=== PATIENT | female | born 2000 | race Caucasian/White ===

== ENCOUNTER 2020-10-12 15:38 | Emergency (ER) | payer OTHER, SELFPAY ==
--- NOTE | ~2020-10-12 | XR_ITS ---
XR foot RT min 3V DATE: 10/12/2020 15:51 INDICATION: Stubbed right fourth toe. Metatarsal pain as well. TECHNIQUE: 4 views of the right foot COMPARISON: None FINDINGS: No fracture or dislocation, periosteal reaction or bone destruction. IMPRESSION: Negative Reviewed, dictated and finalized at location A. IMPRESSION: Negative
--- NOTE | 2020-10-12 15:40 | ED.LOWEXIN ---
HPI - Extremity Injury (Lower) General Chief Complaint: Extremity Injury, Lower Stated Complaint: injured toe Time Seen by Provider: 10/12/20 15:45 Source: patient, family and RN notes reviewed History of Present Illness HPI Narrative: Patient is a 19-year-old female who presents the urgent care with complaints of right fourth toe pain and pain to the right foot. Patient states that 4 days ago she stubbed her toe and believes it may be broke. Patient states she is having a lot of pain and swelling to the underside of the right foot. No other acute complaints. No acute distress noted. Patient aware of the plan of care. Some parts of this dictation were generated by voice recognition software and may contain typographical and/or grammatical inaccuracies. Related Data Home Medications Medication Instructions Recorded Confirmed norgestimate-ethinyl estradiol tablet 10/12/20 [Sprintec (28)] Allergies Allergy/AdvReac Type Severity Reaction Status Date / Time No Known Allergies Allergy Verified 11/21/17 18:20 Review of Systems Review of Systems: Narrative: CONSTITUTIONAL: Denies fever, chills, or sweats. EYES: Denies visual changes, redness, or discharge. ENT: Denies rhinorrhea, congestion, sore throat, or otalgia. CARDIOVASCULAR: Denies chest pain, palpitations, or edema. RESPIRATORY: Denies cough or dyspnea. GASTROINTESTINAL: Denies abdominal pain, nausea, vomiting, or diarrhea. GENITOURINARY: Denies dysuria or hematuria. SKIN: Denies rash or itching. MUSCULOSKELETAL: Reports of swelling and bruising to the right fourth toe and pain to the right foot NEUROLOGIC: Denies headache, numbness, or weakness. All other systems reviewed are negative, except as documented in HPI. PMFSH Comments At the time of my signature, I reviewed and agree with the nursing past medical, surgical, social, and family history. There is no relevant family history pertinent to the patient complaint. Exam Narrative: Exam Narrative: GENERAL: This is a well-nourished, well-developed patient, in no apparent distress. HEAD: normocephalic, atraumatic. EYES: PERRL. Sclera clear/white. Vision is grossly intact. EARS: External ears normal NOSE: External nose normal with no obvious nasal discharge, nares without redness, no rhinorrhea. THROAT: Mucous membranes moist NECK: Neck supple CARDIOVASCULAR: Regular rate and rhythm without murmurs, gallops, or rubs. RESPIRATORY: Clear to auscultation. Breath sounds equal bilaterally. No wheezes, rales, or rhonchi. SKIN: warm, intact with no suspicious lesions or rash, good texture and turgor. NEURO: awake, alert, and oriented to person, place and time. There were no obvious focal neurologic abnormalities. EXTREMITIES: Moderate ecchymosis and mild edema noted to the fourth toe of the right foot with moderate tenderness. Positive strong right pedal pulse with capillary refill less than 2 seconds. Pain exacerbated with weightbearing Course Vital Signs Vital signs: Vital Signs Temperature 98.8 F 10/12/20 15:51 Pulse Rate 102 H 10/12/20 15:51 Respiratory Rate 16 10/12/20 15:51 Blood Pressure 147/94 H 10/12/20 15:51 Pulse Oximetry 100 10/12/20 15:51 Temperature 98.8 F 10/12/20 15:51 Pulse Rate 102 H 10/12/20 15:51 Respiratory Rate 16 10/12/20 15:51 Blood Pressure 147/94 H 10/12/20 15:51 Pulse Oximetry 100 10/12/20 15:51 Reviewed-patient is informed that they may have pre-hypertension or hypertension based on a blood pressure reading in the department. I recommend the patient call the primary care provider listed on their discharge instructions or a physician of their choice this week to arrange follow-up for further evaluation of possible pre-hypertension or hypertension. MDM - Extremity Injury (Lower) MDM Narrative Medical decision making narrative: Reviewed x-ray results with the patient. She is aware that x-ray was negative for fracture or bone abnormality. There is no
[2020-10-12 15:51] VITALS: BP 147/94; PULSE 102; RESP 16; TEMP 37.1; O2SAT 100
== END 2020-10-12 16:11 | disposition home or self-care (01) ==
PROVIDERS: Emergency Provider Nurse Practitioner Family; PCP Pediatrics
DX: S90.121A Contusion of right lesser toe(s) without damage to nail, initial encounter (principal); X58.XXXA Exposure to other specified factors, initial encounter
CPT/HCPCS: 73630; 99213; G0463

== ENCOUNTER 2023-02-27 14:44 | Outpatient (CLI) | payer OTHER, SELFPAY ==
[2023-02-27 15:08] LABS: Basophils Percent Auto 0.1 % (0.2-1.2); Eosinophils Percent Auto 0.1 % (0-4.4); Hematocrit 35.8 % (37.0-47.0); Hemoglobin 11.7 g/dL (12.0-15.0); Immature Granulocyte Absolute 0.05 K/mm3 (0.00-0.031); Immature Granulocyte Percent A 0.4 % (0-0.5); Lymphocytes Absolute Auto 1.88 K/mm3 (0.9-3.2); Lymphocytes Percent Auto 14.1 % (18.3-44.2); Mean Corpuscular HGB Conc 32.7 g/dl (32-36); Mean Corpuscular Hemoglobin 28.5 pg (26-34); Mean Corpuscular Volume 87.1 fl (80-100); Mean Platelet Volume 9.6 fl (7.4-10.4); Monocytes Absolute Auto 0.7 K/mm3 (0.1-0.6); Neutrophils Absolute Auto 10.8 K/mm3 (1.3-6.7); Neutrophils Percent Auto 80.3 % (45.5-73.1); Platelet Count Result 336 k/mm3 (150-375); Red Blood Count 4.11 M/mm3 (4.2-5.4); Red Cell Distribution Width 13.9 % (11.5-14.5); White Blood Count 13.4 K/mm3 (4.5-10.0)
[2023-02-27 15:16] VITALS: BP 136/92; PULSE 82
[2023-02-27 15:18] LABS: Appearance Urine Turbid (Clear); Bacteria Urine None Seen /hpf; Bilirubin Urine Negative (Negative); Blood Urine Negative (Negative); Color Urine Yellow (Yellow); Glucose Urine UA Negative (Negative); Ketones Urine Negative (Negative); Leukocyte Esterase Ur Negative LEU/UL (NEGATIVE); Nitrate Urine Negative (Negative); Non Pathogenic Casts 0-2; Protein Urine Negative (Negative); RBC Urine 0-2 /hpf (0-2); Specific Grav Ur 1.015 (1.001-1.035); Squamous Epithelial Cell Urine None seen /hpf (Few); Urobilinogen Urine 0.2 mg/dL (<2.0); WBC Urine 0-5 /hpf (0-3)
[2023-02-27 15:30] LABS: Add Urine Microscopic? YES
[2023-02-27 15:31] VITALS: BP 137/81; PULSE 79
[2023-02-27 15:33] LABS: Creatinine Urine 95.8 mg/dL; Total Protein Urine Random 12 mg/dL; Ur Ttl Prot Creatinine Ratio 0.13 mg/mg (0-0.20)
[2023-02-27 15:46] VITALS: BP 126/81; PULSE 76
[2023-02-27 16:01] VITALS: BP 137/80; PULSE 71
[2023-02-27 16:09] LABS: Alanine Aminotransferase 20 U/L (6-35); Albumin Level 3.6 g/dL (3.5-5.1); Alkaline Phosphatase 129 U/L (38-126); Anion Gap 10 mmol/L (8-16); Aspartate Amino Transferase 32 U/L (14-36); Bilirubin,Total 0.4 mg/dL (0.2-1.3); Blood Urea Nitrogen 9 mg/dL (7-17); Calcium 9.1 mg/dL (8.4-10.2); Carbon Dioxide 22 mmol/L (22-30); Chloride 103 mmol/L (98-107); Estimated Glomerular Filt Rate > 60; Glucose 99 mg/dL (65-110); Potassium 4.1 mmol/L (3.4-5.0); Sodium 135 mmol/L (137-145); Uric Acid 4.6 mg/dL (2.5-7.5)
[2023-02-27 16:16] VITALS: BP 141/82; PULSE 80
[2023-02-27 16:21] VITALS: BP 137/80; PULSE 80
== END 2023-02-27 16:20 | disposition home or self-care (01) ==
LOC: ANHOBOP 14:48 → ANHOBPP 14:49
PROVIDERS: Visit Provider Obstetrics & Gynecology
DX: O13.9 Gestational [pregnancy-induced] hypertension without significant proteinuria, unspecified trimester (principal); Z3A.00 Weeks of gestation of pregnancy not specified
CPT/HCPCS: 36415; 59025; 80053; 81001; 82570; 84156; 84550; 85025; 87086; 99199

== ENCOUNTER 2023-03-01 11:32 | Outpatient (CLI) | payer OTHER, SELFPAY ==
[2023-03-01 12:19] VITALS: BP 128/80; PULSE 93
[2023-03-01 12:24] LABS: Basophils Percent Auto 0.1 % (0.2-1.2); Eosinophils Percent Auto 0.2 % (0-4.4); Hematocrit 35.9 % (37.0-47.0); Immature Granulocyte Absolute 0.04 K/mm3 (0.00-0.031); Immature Granulocyte Percent A 0.4 % (0-0.5); Lymphocytes Absolute Auto 1.13 K/mm3 (0.9-3.2); Lymphocytes Percent Auto 11.3 % (18.3-44.2); Mean Corpuscular HGB Conc 33.4 g/dl (32-36); Mean Corpuscular Hemoglobin 28.5 pg (26-34); Mean Corpuscular Volume 85.3 fl (80-100); Mean Platelet Volume 9.7 fl (7.4-10.4); Monocytes Absolute Auto 0.4 K/mm3 (0.1-0.6); Monocytes Percent Auto 4.4 % (2.6-8.5); Neutrophils Absolute Auto 8.4 K/mm3 (1.3-6.7); Neutrophils Percent Auto 83.6 % (45.5-73.1); Platelet Count Result 330 k/mm3 (150-375); Red Blood Count 4.21 M/mm3 (4.2-5.4)
[2023-03-01 12:30] VITALS: BP 118/72; PULSE 91
[2023-03-01 12:34] LABS: Alanine Aminotransferase 24 U/L (6-35); Albumin Level 3.8 g/dL (3.5-5.1); Alkaline Phosphatase 147 U/L (38-126); Anion Gap 10 mmol/L (8-16); Aspartate Amino Transferase 31 U/L (14-36); Bilirubin,Total 0.8 mg/dL (0.2-1.3); Blood Urea Nitrogen 10 mg/dL (7-17); Calcium 8.8 mg/dL (8.4-10.2); Carbon Dioxide 19 mmol/L (22-30); Chloride 102 mmol/L (98-107); Estimated Glomerular Filt Rate > 60; Glucose 105 mg/dL (65-110); Potassium 3.8 mmol/L (3.4-5.0); Sodium 131 mmol/L (137-145); Uric Acid 6.2 mg/dL (2.5-7.5)
[2023-03-01 12:36] LABS: Creatinine Urine 278.1 mg/dL; Total Protein Urine Random 9 mg/dL; Ur Ttl Prot Creatinine Ratio 0.03 mg/mg (0-0.20)
[2023-03-01 12:45] VITALS: BP 119/72; PULSE 84
== END 2023-03-01 13:00 | disposition home or self-care (01) ==
LOC: ANHOBOP 11:37 → ANHOBPP 11:39
PROVIDERS: Visit Provider Advanced Practice Midwife
DX: O13.9 Gestational [pregnancy-induced] hypertension without significant proteinuria, unspecified trimester (principal); Z3A.00 Weeks of gestation of pregnancy not specified
CPT/HCPCS: 36415; 59025; 80053; 82570; 84156; 84550; 85025; 99199

== ENCOUNTER 2023-03-15 04:04 | Inpatient (IN) | payer OTHER, SELFPAY ==
[2023-03-15] VITALS (268 sets, daily range): BP systolic 100–162; BP diastolic 46–95; PULSE 28–192; RESP 16–20; TEMP 36.2–36.9; O2SAT 89–100; BMI 47.3
--- NOTE | 2023-03-15 04:46 | LDADM ---
This patient, Ariana Valle, was admitted to Labor/Delivery/Recovery 107 on 03/15/23 at 04:04. Plans for labor, pain management and were discussed with patient. Patient/family oriented to hospital policies and general routines including ID bracelet, bed and alarms, visiting hours, pain management, procedures, bathroom and other care routines, personal items, smoking policy, room service/diet and guest tray routines, security routines, and visiting hours. Patient/Family are encouraged to report perceived risks to care and to ask questions if they do not understand what they are told or what they should do. See OBIX for further documentation.
[2023-03-15 04:51] LABS: Basophils Percent Auto 0.3 % (0.2-1.2); Eosinophils Absolute Auto 0.1 K/mm3 (0-0.3); Eosinophils Percent Auto 0.3 % (0-4.4); Hematocrit 37.2 % (37.0-47.0); Hemoglobin 12.1 g/dL (12.0-15.0); Immature Granulocyte Percent A 0.7 % (0-0.5); Lymphocytes Absolute Auto 2.97 K/mm3 (0.9-3.2); Mean Corpuscular HGB Conc 32.5 g/dl (32-36); Mean Corpuscular Hemoglobin 28.5 pg (26-34); Mean Corpuscular Volume 87.5 fl (80-100); Mean Platelet Volume 10.2 fl (7.4-10.4); Monocytes Absolute Auto 0.8 K/mm3 (0.1-0.6); Monocytes Percent Auto 5.3 % (2.6-8.5); Neutrophils Absolute Auto 10.9 K/mm3 (1.3-6.7); Neutrophils Percent Auto 73.4 % (45.5-73.1); Platelet Count Result 328 k/mm3 (150-375); Red Blood Count 4.25 M/mm3 (4.2-5.4); Red Cell Distribution Width 14.4 % (11.5-14.5); White Blood Count 14.9 K/mm3 (4.5-10.0)
[2023-03-15] MEDS: LACTATED RINGERS 1,000 ML 125 ML IV CONT ×3 (05:04→13:50)
--- NOTE | 2023-03-15 05:42 | WPDANESEPPF ---
Anes - Initial Pre Proc Eval Procedure: Labor epidural Date/Time: 03/15/23 05:42 Surgeon: Rahda Espinoza MD Pre Op Diagnosis: Labor pain Pre Op Diagnosis: Leaking Fluid Patient Data Age: 22 Gender: F Height: 1.52 m Weight: 110 kg Last Vital Signs Pulse 86 03/15/23 05:01 BP 153/95 H 03/15/23 05:01 O2 Del Method Room Air 03/15/23 04:44 Allergies Allergy/AdvReac Type Severity Reaction Status Date / Time No Known Allergies Allergy Verified 03/15/23 04:52 Home Medications Medication Instructions Recorded Confirmed Type Classic 1 tab-cap PO DAILY 03/05/23 03/15/23 History famotidine 20 mg tablet 20 mg PO DAILY 03/05/23 03/15/23 History Laboratory Tests 03/15/23 04:42 WBC 14.9 H K/mm3 (4.5-10.0) RBC 4.25 M/mm3 (4.2-5.4) Hgb 12.1 g/dL (12.0-15.0) Hct 37.2 % (37.0-47.0) MCV 87.5 fl (80-100) MCH 28.5 pg (26-34) MCHC 32.5 g/dl (32-36) RDW 14.4 % (11.5-14.5) Plt Count 328 k/mm3 (150-375) MPV 10.2 fl (7.4-10.4) Immature Gran % (Auto) 0.7 H % (0-0.5) Neut % (Auto) 73.4 H % (45.5-73.1) Lymph % (Auto) 20.0 % (18.3-44.2) [place] % (Auto) 5.3 % (2.6-8.5) Eos % (Auto) 0.3 % (0-4.4) Baso % (Auto) 0.3 % (0.2-1.2) Lymph # (Auto) 2.97 K/mm3 (0.9-3.2) [place] # (Auto) 0.8 H K/mm3 (0.1-0.6) Eos # (Auto) 0.1 K/mm3 (0-0.3) Baso # (Auto) 0.0 K/mm3 (0.0-0.1) Abs Immat Gran (auto) 0.10 H K/mm3 (0.00-0.031) Absolute Neuts (auto) 10.9 H K/mm3 (1.3-6.7) Absolute Nucleated RBC 0.0 K/mm3 (0.0-0.012) Nucleated RBC % 0.0 % (0.0-0.2) RPR Pending Blood Type AB Positive Antibody Screen Pending Patient hx anesthesia problems: none Family hx anesthesia problems: none Results Review: All pre-operative results and documents have been reviewed as part of the pre-operative evaluation. [facility] Family History Family History Father Hypertension Social History Social History Smoking status: Former smoker Tobacco type: cigarettes Smoking end date: 03/25/17 Substance use: never Do You Feel Safe in your Home?: Yes Lack of Transportation: No Lack of Food: Never True Current Housing: I Have Housing Concerned About Future Housing: No Difficulty Paying Gas/Electric Bills: No Difficulty Paying for Meds: No Currently Unemployed: No Education: Associate Degree Difficulty w/ Childcare or Family Care: No Spiritual care concerns: No Anes - Eval Final PreProcedure Day of Procedure 03/15/23 05:42 Patient weight: morbidly obese Heart: regular rate and rhythm Lungs: clear to auscultation ASA classification: III Results Review: All pre-operative results and documents have been reviewed as part of the pre-operative evaluation. Informed Consent: The patient's anesthetic plan and its attendant risks and benefits were discussed with the patient/family/POA. Questions were solicited and answers provided to the satisfaction of the patient/family/POA.
[2023-03-15] MEDS: OXYTOCIN 30 UNITS/NS 500 ML 30 UNITS/500 ML BAG 6 UNITS IV CONT (06:19)
--- NOTE | 2023-03-15 08:01 | WPDOBADMIT ---
Obstetrics - Admit Note Admission Note: record reviewed. No pertinent additions to the history and/or any subsequent changes in the physical findings that are not consistent with the expected course of the were found. SROm at home, forebag ruptured, clear odorless fluid, SVE /-2 Additions to the history and/or subsequent changes in the physical findings follow. None.
[2023-03-15] MEDS: ONDANSETRON INJ 4 MG/2 ML VIAL IV PUSH ×2 (14:21→22:25)
[2023-03-15 14:41] LABS: Rapid Plasma Reagin Non-Reactive (NonReactive)
[2023-03-15] MEDS: AMPICILLIN 2 GM/NS 100 ML 2 GM/100 ML BAG IVPB (19:24)
[2023-03-15] MEDS: CALCIUM CARBONATE (TUMS) 500 MG (200 MG ELEMENTAL) 400 MG PO (21:30)
[2023-03-16] VITALS (216 sets, daily range): BP systolic 89–144; BP diastolic 42–109; PULSE 60–130; RESP 15–20; TEMP 36.6–37.2; O2SAT 83–100
[2023-03-16] MEDS: AMPICILLIN 1 GM/NS 50 ML 1 GM/50 ML BAG IVPB ×2 (01:24→08:06)
[2023-03-16] MEDS: LACTATED RINGERS 1,000 ML 125 ML IV CONT ×2 (01:25→08:06)
[2023-03-16] MEDS: AZITHROMYCIN 500 MG/NS 250 ML 500 MG/250 ML BAG 250 MG IVPB (11:00)
--- NOTE | 2023-03-16 11:12 | PM.IMHP ---
H&P: HPI History of Present Illness Date/Time: 03/16/23 11:12 Chief Complaint: Labor Narrative: 22-year-old primiparous female who has been in labor for many hours progressed to complete dilation of the cervix . Beyond that the infant failed to descend while pushing. There was also some nonreassuring heart tones intermittently. We have agreed to move forward with the delivery. She understands the procedure. Has been explained to her in detail. She understands there is makers result in hospitalization, more surgery, and severe illness. She understands risk of hemorrhage infection. She did she denies any nausea, vomiting, fever, chills. She denies any chest pain shortness of breath Review of Systems Review of Systems: All systems reviewed & are unremarkable except as noted in HPI and below Constitutional: Constitutional: Denies chills, Denies fatigue, Denies fever(s) and Denies weakness Eyes: Eyes: Denies blurry vision, Denies change in vision, Denies loss of peripheral vision, Denies loss of vision, Denies other visual disturbances and Denies eye pain ENT: Denies vertigo, Denies dizziness, Denies hearing loss, Denies mouth pain, Denies nasal obstruction, Denies neck mass and Denies neck pain Cardiovascular: Cardiovascular: Denies chest pain, Denies diaphoresis, Denies syncope, Denies leg edema and Denies dyspnea Respiratory: Respiratory: Denies chest congestion, Denies cough, Denies hemoptysis, Denies dyspnea and Denies wheezing Gastrointestinal: Gastrointestinal: Denies abdominal pain, Denies constipation, Denies diarrhea, Denies nausea and Denies vomiting Genitourinary: Genitourinary: Denies hematuria, Denies change in libido, Denies nocturia, Denies genital lesions, Denies flank pain and Denies urinary urgency Musculoskeletal: Musculoskeletal: Denies abnormal gait, Denies back pain, Denies myalgias, Denies arthralgias, Denies joint swelling, Denies muscle weakness and Denies neck pain Integumentary/Breasts: Skin/Breast: Denies swelling, Denies breast pain, Denies breast mass, Denies dry skin, Denies nipple discharge, Denies unusual bruising and Denies jaundice Neurologic: Denies Neuro-related abnormal movements, Denies Abnormal speech present, Denies abnormal gait, Denies behavioral changes, Denies confusion, Denies vertigo, Denies dizziness, Denies syncope, Denies loss of vision, Denies memory loss, Denies convulsions and Denies weakness Psychiatric: Psychiatric: Denies abnormal sleep pattern, Denies behavioral changes, Denies change in libido, Denies confusion, Denies depression, Denies anhedonia and Denies memory loss Endocrine: Endocrine: Reports no additional endocrine complaints, Denies change in libido and Denies fatigue Hematologic/Lymphatic: Hematologic/Lymphatic: Reports no additional hematologic/lymphatic complaints Allergic/Immunologic: Allergic/Immunologic: Reports no additional allergic/immunologic complaints and Denies wheezing PMFSH Family History Family History Father Hypertension Social History Social History Smoking status: Former smoker Tobacco type: cigarettes Smoking end date: 03/25/17 Substance use: never Do You Feel Safe in your Home?: Yes Lack of Transportation: No Lack of Food: Never True Current Housing: I Have Housing Concerned About Future Housing: No Difficulty Paying Gas/Electric Bills: No Difficulty Paying for Meds: No Currently Unemployed: No Education: Associate Degree Difficulty w/ Childcare or Family Care: No Spiritual care concerns: No Meds Home Medications and Allergies Home Medications Medication Instructions Recorded Confirmed Type Classic 1 tab-cap PO DAILY 03/05/23 03/15/23 History famotidine 20 mg tablet 20 mg PO DAILY 03/05/23 03/15/23 History Allergies Allergy/AdvReac Type Severity React
[2023-03-16] MEDS: ONDANSETRON INJ 4 MG/2 ML VIAL IV PUSH ×2 (11:15→17:25)
--- NOTE | 2023-03-16 11:19 | P.PNAN_ITS ---
Anes - Eval Final PreProcedure Day of Procedure 03/16/23 11:19 Patient weight: morbidly obese ASA classification: III Emergent: no Anesthetic plan: proceed Anesthesia type and monitoring: regional epidural and standard monitoring Other findings: use existing epid for c/s Results Review: All pre-operative results and documents have been reviewed as part of the pre- operative evaluation. Informed Consent: The patient's anesthetic plan and its attendant risks and benefits were discussed with the patient/family/POA. Questions were solicited and answers provided to the satisfaction of the patient/family/POA.
--- NOTE | 2023-03-16 11:20 | WPDHPUPDATE1 ---
History and Physical Update Update Date/Time: 03/16/23 11:20 History and Physical has been reviewed, including an updated exam of the patient. There are NO changes in the patient's condition. Risks, benefits, and alternatives have been discussed and questions answered. Patient agrees to proceed with procedure.
[2023-03-16] MEDS: ceFAZolin 2 GM/D5W 50 ML 2 GM/50 ML BAG IVPB (11:37)
[2023-03-16] MEDS: KETOROLAC 30 MG/ML VIAL (*BKC) IV PUSH (12:34)
--- NOTE | 2023-03-16 14:50 | OBPPTRN ---
Patient transferred to post room #280 via stretcher. Support person present. Oriented to unit, room, information board, rooming in, admission packet and security measures. Patient verbalizes understanding.
[2023-03-16] MEDS: LIDOCAINE 5% PATCH 1 PATCH TRANSDERM (17:25)
[2023-03-16] MEDS: DEXTROSE 5%/0.45% SOD CHL 1,000 ML 125 ML IV CONT (18:18)
[2023-03-16] MEDS: IBUPROFEN 600 MG TABLET PO (22:22)
[2023-03-16] MEDS: HYDROcodone/acetaminophen (*CRX) 5-325 MG TABLET 1 TAB PO (22:23)
[2023-03-17] MEDS: HYDROcodone/acetaminophen (*CRX) 5-325 MG TABLET 1 TAB PO ×3 (03:10→22:20)
[2023-03-17 04:00] VITALS: BP 110/86; PULSE 82; RESP 18; TEMP 36.5; O2SAT 98
[2023-03-17 04:58] LABS: Basophils Percent Auto 0.2 % (0.2-1.2); Eosinophils Percent Auto 0.2 % (0-4.4); Hematocrit 26.5 % (37.0-47.0); Hemoglobin 8.5 g/dL (12.0-15.0); Immature Granulocyte Absolute 0.07 K/mm3 (0.00-0.031); Immature Granulocyte Percent A 0.4 % (0-0.5); Lymphocytes Absolute Auto 1.96 K/mm3 (0.9-3.2); Lymphocytes Percent Auto 10.9 % (18.3-44.2); Mean Corpuscular HGB Conc 32.1 g/dl (32-36); Mean Corpuscular Hemoglobin 28.6 pg (26-34); Mean Corpuscular Volume 89.2 fl (80-100); Monocytes Percent Auto 5.3 % (2.6-8.5); Platelet Count Result 221 k/mm3 (150-375); Red Blood Count 2.97 M/mm3 (4.2-5.4); Red Cell Distribution Width 14.6 % (11.5-14.5)
[2023-03-17 07:30] VITALS: BP 114/71; PULSE 84; RESP 16; TEMP 36.6; O2SAT 98
[2023-03-17] MEDS: POLYSACCHARIDE IRON COMPLEX 150 MG CAPSULE PO ×2 (07:43→17:23)
[2023-03-17] MEDS: DOCUSATE SODIUM 100 MG CAPSULE PO ×2 (07:44→17:23)
[2023-03-17] MEDS: MULTIVIT/MIN/PREN/FOL AC/IRON TABLET 1 TAB PO (07:44)
[2023-03-17] MEDS: IBUPROFEN 600 MG TABLET PO ×3 (07:44→22:20)
--- NOTE | 2023-03-17 09:58 | PM.OBPNVD ---
OB - PN: Subj Subjective Date/time seen: 03/17/23 09:58 Interval history: pp day 1 pain managed breast feeding OB - PN: Obj Data Labs 03/17/23 04:34 Labs: Laboratory Results - last 24 hr 03/17/23 04:34 WBC 18.0 H RBC 2.97 L Hgb 8.5 L D Hct 26.5 L MCV 89.2 MCH 28.6 MCHC 32.1 RDW 14.6 H Plt Count 221 MPV 10.0 Immature Gran % (Auto) 0.4 Neut % (Auto) 83.0 H Lymph % (Auto) 10.9 L [place] % (Auto) 5.3 Eos % (Auto) 0.2 Baso % (Auto) 0.2 Lymph # (Auto) 1.96 [place] # (Auto) 1.0 H Eos # (Auto) 0.0 Baso # (Auto) 0.0 Abs Immat Gran (auto) 0.07 H Absolute Neuts (auto) 15.0 H Absolute Nucleated RBC 0.0 Nucleated RBC % 0.0 OB - PN A/P Time Spent With Patient Time: Total time spent is greater than 50% in coordination of care (as documented) at patient's floor/unit and/or counseling patient: Review of Systems Review of Systems: All systems reviewed & are unremarkable except as noted in HPI and below Exam Const: General: cooperative and healthy appearing Chest: Chest palpation & inspection: normal inspection of the chest Resp: Effort & Inspection: normal respiratory effort GI: Inspection: normal to inspection Back/Spine/Pelvis: Back: no CVA tenderness Skin: General skin exam: normal color Extrem: Right lower extremity: normal to inspection Left lower extremity: normal to inspection
[2023-03-17] MEDS: SIMETHICONE 80 MG TAB.CHEW PO ×4 (10:44→22:21)
[2023-03-17] MEDS: FERROUS SULFATE 325 MG TABLET DR PO (10:44)
[2023-03-17] MEDS: HYDROcodone/acetaminophen (*CRX) 10-325 MG TABLET 1 TAB PO ×3 (10:44→17:23)
--- NOTE | 2023-03-17 12:20 | PC.NURSE ---
Breast pump provided due to ineffective feedings. Instructions given on cleaning, care, usage, that there should be no pain, pumping schedule for milk production, collection, and storage of human milk. Patient was assessed for correct placement, flange size, to pump for comfort and nipple stretching/stimulation for adequate milk production every 3 hours (8 times in 24 hours) 1-2 times at night.
--- NOTE | 2023-03-17 12:57 | WPDANLDPN2 ---
Anes-Prog Note L&D Date/Time: 03/17/23 12:57 Comfortable throughout: labor and section Neuraxial method: epidural Epidural/Spinal procedure site: clean & non-tender Neuro status: Neuro function grossly intact. Cardiovascular status: normal Respiratory status: normal Airway patency: baseline Mental status: baseline Post-Op hydration status: normal Vital Signs: Last Vital Signs Temp 97.8 F 03/17/23 07:30 Pulse 84 03/17/23 07:30 Resp 16 03/17/23 07:30 BP 114/71 03/17/23 07:30 Pulse Ox 98 03/17/23 07:30 O2 Del Method Room Air 03/17/23 07:30 Pain score (VAS): 6 I/O: Intake & Output 03/16/23 03/17/23 03/17/23 23:59 07:59 15:59 Output Total 150 1025 550 Balance -150 -1025 -550 Post-procedural complaints: none Patient feedback: Patient satisfied with anesthetic care.
--- NOTE | 2023-03-17 12:57 | WPDANLDNPN2 ---
Anes-Prog Note L&D-Neuraxial Date/Time: 03/17/23 12:57 Neuraxial medications: epidural PF morphine Opiod-related complaints: none Patient feedback: Patient satisfied with post-operative pain management.
[2023-03-17 19:15] VITALS: BP 135/88; PULSE 83; RESP 16; TEMP 36.4; O2SAT 99
[2023-03-18] MEDS: HYDROcodone/acetaminophen (*CRX) 5-325 MG TABLET 1 TAB PO ×4 (02:15→23:00)
--- NOTE | 2023-03-18 03:33 | P.PNOB_ITS ---
OB - PN: Subj Subjective Date/time seen: 03/18/23 03:33 Interval history: pp day 2 pain managed breast feeding OB - PN: Obj Data Labs 03/17/23 04:34 Labs: Laboratory Results - last 24 hr 03/17/23 04:34 WBC 18.0 H RBC 2.97 L Hgb 8.5 L D Hct 26.5 L MCV 89.2 MCH 28.6 MCHC 32.1 RDW 14.6 H Plt Count 221 MPV 10.0 Immature Gran % (Auto) 0.4 Neut % (Auto) 83.0 H Lymph % (Auto) 10.9 L [place] % (Auto) 5.3 Eos % (Auto) 0.2 Baso % (Auto) 0.2 Lymph # (Auto) 1.96 [place] # (Auto) 1.0 H Eos # (Auto) 0.0 Baso # (Auto) 0.0 Abs Immat Gran (auto) 0.07 H Absolute Neuts (auto) 15.0 H Absolute Nucleated RBC 0.0 Nucleated RBC % 0.0 OB - PN A/P Plan day: 2 Plan: routine care Time Spent With Patient Time: Total time spent is greater than 50% in coordination of care (as documented) at patient's floor/unit and/or counseling patient: Review of Systems Review of Systems: All systems reviewed & are unremarkable except as noted in HPI and below Exam Const: General: cooperative Resp: Effort & Inspection: normal respiratory effort Cardio: Rate: regular rate GI: Other: incision CDI Skin: General skin exam: normal color Extrem: Right lower extremity: normal to inspection Left lower extremity: normal to inspection
[2023-03-18 07:40] VITALS: BP 135/84; PULSE 96; RESP 16; TEMP 37.2; O2SAT 100
[2023-03-18] MEDS: IBUPROFEN 600 MG TABLET PO ×3 (08:07→22:59)
[2023-03-18] MEDS: DOCUSATE SODIUM 100 MG CAPSULE PO ×2 (08:07→17:24)
[2023-03-18] MEDS: POLYSACCHARIDE IRON COMPLEX 150 MG CAPSULE PO ×2 (08:07→17:24)
[2023-03-18] MEDS: MULTIVIT/MIN/PREN/FOL AC/IRON TABLET 1 TAB PO (08:07)
[2023-03-18] MEDS: LIDOCAINE 5% PATCH 1 PATCH TRANSDERM ×2 (13:31→22:00)
[2023-03-18] MEDS: HYDROcodone/acetaminophen (*CRX) 10-325 MG TABLET 1 TAB PO (13:31)
[2023-03-18 19:15] VITALS: BP 134/88; PULSE 101; RESP 16; TEMP 36.8; O2SAT 96
[2023-03-19] MEDS: DOCUSATE SODIUM 100 MG CAPSULE PO (07:43)
[2023-03-19] MEDS: POLYSACCHARIDE IRON COMPLEX 150 MG CAPSULE PO (07:43)
[2023-03-19] MEDS: MULTIVIT/MIN/PREN/FOL AC/IRON TABLET 1 TAB PO (07:44)
[2023-03-19] MEDS: HYDROcodone/acetaminophen (*CRX) 5-325 MG TABLET 1 TAB PO (07:44)
[2023-03-19] MEDS: IBUPROFEN 600 MG TABLET PO (07:44)
[2023-03-19 07:55] VITALS: BP 143/87; PULSE 91; RESP 16; TEMP 37.4; O2SAT 99
--- NOTE | 2023-03-19 08:41 | PC.NURSE ---
Patient viewed the discharge video Mother & Baby Care, The First Two Weeks . Patient was given the opportunity and encouraged to ask questions. Patient verbalized understanding of information shared and has been given the mother/baby guide for home reference.
--- NOTE | 2023-03-19 10:59 | PM.OBPNVD ---
OB - PN: Subj Subjective Date/time seen: 03/19/23 10:59 Interval history: pp day 3 pain well controlled breast feeding ready for discharge today OB - PN: Obj Data Labs 03/17/23 04:34 OB - PN A/P Plan day: 3 Plan: discharge home Time Spent With Patient Time: Total time spent is greater than 50% in coordination of care (as documented) at patient's floor/unit and/or counseling patient: Review of Systems Review of Systems: All systems reviewed & are unremarkable except as noted in HPI and below Exam Const: General: cooperative Resp: Effort & Inspection: normal respiratory effort Cardio: Rate: regular rate GI: Other: incision CDI Skin: General skin exam: normal color Extrem: Right lower extremity: normal to inspection Left lower extremity: normal to inspection
--- NOTE | 2023-03-19 11:02 | P.DS_ITS ---
DS: Admitting Diagnosis Discharge Date 03/19/23 Admitting Diagnosis prelabor rupture of membranes DS: Discharge Diagnosis Discharge Diagnosis (1) S/P : Code(s): Z98.891 - History of uterine scar from previous surgery Status: Acute (2) Failure of descent in labor, delivered, current hospitalization: Code(s): O62.2 - Other uterine inertia Status: Acute OB - DS: Summary OB Procedures : None OB Procedures Intrapartum: low cervical, transverse OB Procedures: : None Peripartum Data Procedures: Procedures Operation Date: 03/16/23 11:30 Actual Procedure Side Surgeon p Section Not Applicable Radha Espinoza MD Time Spent with Patient Time attestation: Total time spent providing and/or coordinating discharge services: Discharge Plan Discharge Attending physician on discharge: Deshawn Yanes Discharging Clinician: Deshawn Yanes Patient Disposition: Home, Self-Care Activity: may shower, may drive after 2 weeks and pelvic rest Diet: as tolerated Patient Instructions: Antibiotic Form Stand Alone Forms: General Discharge Information Follow-up/Referrals: Radha Espinoza MD [Physician] - 1 Week (BP check) Discharge Medications: Continued famotidine 20 mg tablet 20 mg PO DAILY Classic 1 tab-cap PO DAILY Date of admission: 03/15/23 04:04 Primary Care Provider: PHYSICIAN,BUILDING DRAFTING OFFICER Admitting Provider: Radha Espinoza Attending physician on admission: Radha Espinoza Condition: Stable
[2023-03-20 10:37] VITALS: BP 142/89; PULSE 80; RESP 18; TEMP 37; O2SAT 100
--- NOTE | 2023-03-22 11:08 | W.PM.OBCSD ---
OB - Delivery Note Procedure Delivery date: 03/22/23 Pre-op diagnosis: Arrest of Decent and Non-Reassuring Status Post-op Diagnosis: Same Induction method: None Delivery augmentation: Pitocin Delivery monitor: External FHT and External Uterine Procedure Performed: Primary Surgeon: Radha Espinoza MD Anesthesia type: Epidural Description of Procedure/Findings: The patient was taken the operating room.? She was prepped and draped in dorsal supine position with a leftward tilt.? This was done after spinal anesthetic was applied.? A low-transverse skin incision was made and carried down till of the fascia with the knife.? The fascial incision was made with the knife.? The fascial incision was extended laterally with Vale scissors.? The fascia was tented upward superiorly and inferiorly the rectus muscles were dissected off bluntly.? The rectus muscles were the midline.? The preperitoneal fat and peritoneum were dissected open bluntly at the superior aspect of the rectus muscles.? The peritoneal incision was extended superior and inferior with good position of bladder.? The uterine incision was made with a scalpel down to the level of the amniotic cavity.? The amniotic cavity was entered bluntly.? The was delivered.? The cord was clamped and cut and the was handed off to waiting pediatric staff.? Cord bloods were obtained.? The placenta was removed manually.? The uterus was exteriorized.? The uterus was cleared of all clots, debris and membranes.? The uterus was closed in 0 Vicryl running lock fashion.? An imbricating over a was placed along the incision line as well.? The uterus was returned to the abdomen.? The gutters were cleared of all clots and debris.? The fascia was closed with 0 Vicryl running fashion.? The subcutaneous tissue was irrigated pinpoint bleeders were cauterized.? The skin was closed with subcuticular absorbable steven.? The skin incision line was covered with glue.? The patient tolerated the procedure well.? She has taken recovery room in stable condition.? Sponge lap and needle counts were correct x2.? Urine Output: 550 Condition: Stable Disposition: Floor [place] Baby Weeks of gestation at delivery: 38
== END 2023-03-19 13:15 | disposition home or self-care (01) | DRG 540 ==
LOC: ANHLDR 18:56 → ANHOB2 03-16 15:12
PROVIDERS: Admitting Provider Obstetrics & Gynecology; Visit Provider Obstetrics & Gynecology
PROC: 10D00Z1 Extraction of Products of Conception, Low, Open Approach (ICD-10-PCS; CPT 59514; principal; 2023-03-16 11:30)
DX: O62.2 Other uterine inertia (principal); Z37.0 Single live birth; Z3A.39 39 weeks gestation of pregnancy; O77.0 Labor and delivery complicated by meconium in amniotic fluid; O63.1 Prolonged second stage (of labor); O36.8330 Maternal care for abnormalities of the fetal heart rate or rhythm, third trimester, not applicable or unspecified
CPT/HCPCS: 36415; 84112; 85025; 86592; 86850; 86900; 86901; A9270; J0290; J0456; J0690; J1885; J2274; J2405; J2590; J2795; J7120

== ENCOUNTER 2024-03-23 11:19 | Emergency (ER) | payer OTHER, SELFPAY ==
[2024-03-23 11:25] VITALS: BP 143/85; PULSE 90; RESP 18; TEMP 36.8; O2SAT 99
--- NOTE | 2024-03-23 12:16 | ED.URI ---
HPI - URI/Sore Throat General Chief Complaint: Upper Respiratory Infection Stated Complaint: poss sinus infection Time Seen by Provider: 03/23/24 12:05 Source: patient, RN notes reviewed and old records reviewed Mode of arrival: ambulatory Limitations: no limitations History of Present Illness HPI Narrative: 23 year old female who presents to [facility] care with complaints of 'sinus infection' symptoms of headache, sinus congestion with draiage cough, sore throat with the cough, decreased hearing to her ears for one week duration with increased symptoms for the past 2 days. Patient reports that she has been taking an allergy pill, Tylenol and Ibuprofen for her symptoms Patient reports no known fevers no body aches nausea or vomiting.. MD elicited complaint: cough, sore throat, rhinorrhea, nasal congestion, sinus pain and other (headache and ears have decreased hearing) Onset (ago): week(s) (1) Pain scale (0-10): 4 Able to tolerate fluids by mouth: Yes Treatments prior to arrival: acetaminophen, ibuprofen and other (allergy pill) Related Data Home Medications ?Medication ?Instructions ?Recorded ?Confirmed ?Last Taken ?Type escitalopram oxalate 20 mg tablet mg 03/23/24 Unknown History Allergies Allergy/AdvReac Type Severity Reaction Status Date / Time No Known Allergies Allergy Verified 03/23/24 11:27 Review of Systems Review of Systems: CONSTITUTIONAL: Reports malaise, chills, sweats, or fever. EYES: Denies visual changes, redness, or discharge. ENT: Reports rhinorrhea, congestion, sinus pain, bilateral otalgia and sore throat. CARDIOVASCULAR: Denies chest pain, palpitations, or edema. RESPIRATORY: Reports cough.? Denies dyspnea. GASTROINTESTINAL: Denies abdominal pain, nausea, vomiting, diarrhea SKIN: Denies rash or itching. MUSCULOSKELETAL: Denies myalgia. NEUROLOGIC: Reports headache. All systems reviewed & are unremarkable except as noted in HPI and below PMFSH Past Medical History Medical History (Updated 03/26/24 @ 20:16 by Sanjuana Guerrero NP) Sinusitis Ear infection Fracture of left leg Surgical History Surgical History (Updated 03/26/24 @ 20:16 by Sanjuana Guerrero NP) Previous section Family History Family History Father Hypertension Social History Social History (Updated 03/26/24 @ 20:13 by Sanjuana Guerrero NP) Smoking status: Current every day smoker Tobacco type: cigarettes and e-cigarettes/vaping Smoking end date: 03/25/17 Additional smoking assessment comments: former cigarette smoking Substance use: never Do You Feel Safe in your Home?: Yes Lack of Transportation: No Lack of Food: Never True Current Housing: I Have Housing Concerned About Future Housing: No Difficulty Paying Gas/Electric Bills: No Difficulty Paying for Meds: No Currently Unemployed: No Education: Associate Degree Difficulty w/ Childcare or Family Care: No Spiritual care concerns: No Comments At time of signature, agree with nursing past medical, surgical, social and family history. There is no relevant family history pertinent to the presenting complaint Exam Narrative: GENERAL: Well-appearing, well-nourished, and in no acute distress. HEAD: Normocephalic EYES: PERRLA, conjunctivae clear ENT: Nares clear, turbinates edematous and erythematous, clear discharge. Mucous membranes moist Right TM red, Left. TM pearly pereira with dull light reflex; no tragal tenderness. Oropharynx erythematous without lesions. Tonsils not enlarged and without exudate, no drooling, no hoarseness, no trismus, uvula midline.post nasal drainage NECK: Supple. No lymphadenopathy CHEST: Clear to auscultation, breath sounds equal. No wheezing, rhonchi, rales, or stridor. No respiratory distress, speaks in full sentences. dry cough SAO2 99% on room air HEART: Regular rate and rhythm. No murmur heard. SKIN: Warm, dry, no rash. NEURO: Alert and oriented x3. PSYCH: Normal mood and affect Course Course Emergency Course: Patient is aware of diagnosis, understands and agrees to treatment plan.? Anticipatory guidance given.? Patient agrees to follow-up as directed and is aware of reasons to seek care at the emergency department. Portions of this record may have been created with voice recognition software Level of Care: Express Care Visit Vital Signs Vital signs: Vital Signs Temperature 36.8 C 03/23/24 11:25 Pulse Rate 90 03/23/24 11:25 Respiratory Rate 18 03/23/24 11:25 Blood Pressure 143/85 H 03/23/24 11:25 Pulse Oximetry 99 03/23/24 11:25 Oxygen Delivery Room Air 03/23/24 11:25 Temperature 36.8 C 03/23/24 11:25 Pulse Rate 90 03/23/24 11:25 Respiratory Rate 18 03/23/24 11:25 Blood Pressure 143/85 H 03/23/24 11:25 Pulse Oximetry 99 03/23/24 11:25 Oxygen Delivery Room Air 03/23/24 11:25 Reviewed MDM - URI/Sore Throat MDM Narrative Medical decision making narrative: Differential diagnosis considered: Hartman virus, strep pharyngitis, allergic rhinitis, upper respiratory tract infection, sinusitis, rhinosinusitis, nasopharyngitis. viral pharyngitis, otitis media, otitis externa, pneumonia, bronchitis, viral cough syndrome, viral syndrome, and influenza.? Exam findings show no acute concerns or changes; patient is non-toxic appearing and is in no distress.? Patient is appropriate for outpatient treatment and follow-up. Differential Diagnosis Differential diagnosis: Likely upper respiratory infection, otitis media, sinusitis, viral infection, influenza and other (COVID) Medical Records Attestation: I reviewed the patient's medical records. Lab Data Attestation: I reviewed the patient's lab results. Lab results narrative: Influenza A negative, Influenza B negative, COVID antigen negative Labs: Lab Results 03/23/24 Range/Units 12:19 POC Influenza A Ag Negative (Negative) POC Influenza B Ag Negative (Negative) POC SARS CoV-2 Ag Negative (Negative) reviewed Critical Care Time Critical Care Time Critical Care Time: No Discharge Plan Discharge Clinical Impression: Otitis media, right Qualifiers: Otitis media type: serous Chronicity: acute Recurrence: not specified as recurrent Qualified Code(s): H65.01 - Acute serous otitis media, right ear Patient Disposition: Home, Self-Care Condition: Stable Instructions: Antibiotic Form, Ear Infection (GEN) Additional Instructions: Increase fluids especially juices and water [id number] cough and cold medicine of your choice for your symptoms Tylenol or ibuprofen for any fever pain Zyrtec Claritin or Anita daily heat to the face 20-30 minutes 4-6 times a day for pain Salt water gargles, throat lozenges or throat sprays as desired Antibiotic as directed--finished the medication If your symptoms persist, change or worsen significantly before you can contact your personal physician then please, without delay, go to the emergency department for further evaluation. Follow-up with PCP in 7-10 days or sooner if needed Follow up with PCP soon in regards to your blood pressure which is elevated above threshold for referral. Blood pressure above 120/80 may indicate pre-hypertension. 143/85 Patient Language: Divehi Prescriptions: New amoxicillin 875 mg tablet 875 mg PO Q12H Qty: 20 0RF Rx Instructions: take all doses of medication No Action escitalopram oxalate 20 mg tablet Follow-up/Referrals: PHYSICIAN,STUDIO ASSISTANT [Primary Care Provider] - Time of Disposition: 12:50 Quality Sarah Coma Scale Eyes: Open Verbal: Oriented and Alert Motor: Follows Commands [place] Coma Total Score: 15
[2024-03-23 12:24] LABS: EDCOVIDSCREEN Negative (Negative); EDINFLUASCREEN Negative (Negative); EDINFLUBSCREEN Negative (Negative)
== END 2024-03-23 12:54 | disposition home or self-care (01) ==
PROVIDERS: Emergency Provider Registered Nurse
DX: H65.01 Acute serous otitis media, right ear (principal); Z20.822 Contact with and (suspected) exposure to COVID-19; F17.290 Nicotine dependence, other tobacco product, uncomplicated
CPT/HCPCS: 87426; 87804; 99213; G0463

== ENCOUNTER 2024-11-12 08:29 | Emergency (ER) | payer OTHER, SELFPAY ==
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
[2024-11-12 08:33] VITALS: BP 155/98; PULSE 99; RESP 20; TEMP 36.7; O2SAT 99
--- OUTSIDE RECORDS SUMMARY | 2024-11-12 08:43 | XMS_ITS | Encounter Summary ---
Author Organization [facility] Address [address] [place] [address] Care Team Providers Care Tire Retreader Name Role Phone Maryjane Interiano MD Unavailable Carrol Oh MD Primary Care Provider [phone] Encounter Details Date Type Department Care Team (Late st Contact Info) Description 09/27/2015 [facility] Outpatient Visit [facility] - Pediatric[facility] [address] [place] [phone] Carrol Oh MD [address] [place] [phone] Social History Tobacco Use Types Packs/Day Years Used Date Smoking Tobacco: Never Smokeless Tobacco: Never Alcohol Use Standard Drinks/Week Comments Not Asked 0 (1 standard drink = 0.6 oz pur e alcohol) Comments No Sex and Gender Information Value Date Recorded Sex Assigned at Not on file Legal Sex Female 6:55 AM SALES AND MANAGEMENT TRAINEE Gender Identity Not on file Sexual Orientation Not on file documented as of this encounter Plan of Treatment Not on file documented as of this encounter Goals Goal Patient Goal Type Associated Problems Recent Progress Patient-Stated? Author Reduce calorie intake to 1800 calories per day Diet On track( 020 4:29 PM SALES AND MANAGEMENT TRAINEE) No Carrol Oh MD Note: Caring for Your Overweight Child Eating a healthy diet: Think of the food your child eats in terms of GO, SLOW, and WHOA foods. They can enjoy GO foods almost any time they like. Limit SLOW foods to certain occasions, no more than a few times per week. And enjoy WHOA foods only on special occasions, and then eat only a small portion. GO foods include low-fat, low-calorie foods that are also low in added sugar. They tend to be rich in nutrients, such as vitamins, minerals, and other healthy substances. Fresh fruits and vegetables are great examples of GO foods. That said, fried vegetables and fruits canned in syrup, despite their vital ingredients, fall into the category of WHOA foods. Be sure to stock up on GO foods so that you can offer a variety of foods to keep things interesting. SLOW foods tend to be higher in fat and added sugar than GO foods are. Examples include fruit juices, baked goods made with white, refined flour; and poultry cooked with the skin still on. WHOA foods are the highest in fat and added sugar. Foods prepared with heavy creams and butter, fried foods, and fatty meats are examples of foods your child should only eat once in a while. One way to identify unhealthy eating triggers is for your child to keep a journal, in which they writes down the food they ate, where they ate it, the time of day and - extremely important - the reasons for eating. Did they devour two slices of meatball pizza after school because they were truly hungry or because they simply wanted to hang out at the pizza parlor with their friends? If they give the latter reason, perhaps next time the group can split a pizza and she could consciously choose to n urse a single slice, even if everyone else grabs two. Where can I go for more information? [employer] ( ) www.aap.org, HealthyChildren.org www.healthychildren.org Website and free downloadable juan ramon for smartphones: http://www.[employer]/ Use safety retraint in car Lifestyle On track( 021 10:45 AM SALES AND MANAGEMENT TRAINEE) Keeley Mendiola RN documented as of this encounter Visit Diagnoses Not on filedocumented in this encounter Care Teams Tire Retreader Relationship Specialty Start Date End Date Maryjane Interiano MD PCP - Pediatrics 03/07/09 05/15/20 Carrol Oh MD PCP - General Pediatrics 09/28/14 documented as of this encounter
--- OUTSIDE RECORDS SUMMARY | 2024-11-12 08:43 | XMS_ITS | Clinical Summary ---
Author Organization [facility] Address [address] [place] [address] Care Team Providers Care Choker Setter Name Role Phone Carrol Oh MD Primary Care Provider [phone] Source Comments [facility],non-owned Affiliates and Associated Physician Practices is amultiple site organization consisting of ambulatory clinics and hospital sitesin [place], [place], [place] and [place]. This disclosure is being madepursuant to the Care Everywhere program and may not contain all information available regarding this patient. Last updated 17.[facility] Allergies No known active allergies Medications * Be aware that medications may not be up to date on this document. Alwaysverify current medications with the patient. norgestimate-eth inyl estradiol (SPRINTEC 28) 0.25-35 MG-MCG tablet Take 1 (one) tablet by mouth once daily 28 tablet 11 05/16/2020 Active Active Problems Problem Noted Date Diagnosed Date Elevated blood pressure reading 04/07/2018 BMI (body mass index), pediatric, 95-99% for age 0709/29/2014 Immunizations Immunization Administration Dates Next Due DTaP VACCINE IM (6wk-6yrs) 09/20/2005,,04/28/2001,02/25,2000 HEP B VACCINE, PED/ADOL 07/28/2001,2000, HIB BOOSTER 11/24/2002, 2,02/25/2001,12/26 Human Papilloma Virus Richard valent Vaccine 10/31/2015,09/29/2014,11/06/2011 INFLUENZA VACCINE, QUADR. (F LUZONE; FLULAVAL; FLUARIX; AFLURIA QUADRIVALENT; 6MO+), 0.5 ML (IIV4) 05/07/2019,01/03/2018,02/01/2017,01/15,01/24/2015 MENINGOCOCCAL ACWY (MCV4P) VAC IM 03/21/2017,10/2014 MMR 09/20/2005,10/24/2001 PNEUMOCOCCAL CONJ, PEDS 01/26/2002,04/28,02/25/2001,12/26 POLIO IPV 09/20/2005, 2,02/25/2001,12/26 TDAP (7yrs+) 11/06/2011 VARICELLA 09/29/2014,01/26/2002 Social History Tobacco Use Types Packs/Day Years Used Date Smoking Tobacco: Never Smokeless Tobacco: Never Alcohol Use Standard Drinks/Week Comments Not Asked 0 (1 standard drink = 0.6 oz pur e alcohol) Comments No Sex and Gender Information Value Date Recorded Sex Assigned at Not on file Legal Sex Female 6:55 AM PROFESSOR OF FORESTRY Gender Identity Not on file Sexual Orientation Not on file Last Filed Vital Signs Vital Sign Reading Time Taken Comments Blood Pressure 143/79 05/16/2020 10:45 AM PROFESSOR OF FORESTRY Pulse 83 05/16/2020 10:45 AM PROFESSOR OF FORESTRY Temperature 36.5 C (97.7 F) 05/16/2020 10:45 AM PROFESSOR OF FORESTRY Respiratory Rate - - Oxygen Saturation 98% 06/11/2019 10:33 AM CDT Inhaled Oxygen Concentration - - Weight 98.1 kg (216 lb 3.2 oz) 05/16/2020 10:45 AM PROFESSOR OF FORESTRY Height 162.6 cm (5' 4) 05/16/2020 10:45 AM PROFESSOR OF FORESTRY Body Mass Index 37.11 05/16/2020 10:45 AM PROFESSOR OF FORESTRY Plan of Treatment Health Maintenance Due Date Last Done Comments HIV SCREENING 10/24/2015 CHLAMYDIA/GONORRHEA SCREENING 2016 HEPATITIS C SCREENING 10/19/2018 DTAP/TDAP/TD VACCINES (7 - Td or Tdap) 11/05/2021 11/06/2011, 09/20/2005, 11/24/2002, Additional history exists COVID-19 VACCINE ( season) 2023 DEPRESSION SCREENING 03/25/2024 INFLUENZA VACCINE (#1) 2024 0, 01/03/2018, 02/01/2017, Additional history exists ZOSTER VACCINE (1 of 2) 2050 HEPATITIS B VACCINE Completed 07/28/2001, 2000, 2000 PNEUMOCOCCAL VACCINE Completed 01/26/2002, 04/28/2001, 02/25/2001, Additional history exists HIB VACCINE Completed 11/24/2002, 06/2001, 02/25/2001, Additional history exists HPV VACCINE Completed 10/31/2015, 10/2014, 11/06/2011 MENINGOCOCCAL GROUPS A/C/Y/W VACCINE Completed 03/21/2017, 09/29/2014 MENINGOCOCCAL (Group B) VACCINE SHARED DECISION-MAKING Aged Out No longer eligible based on patient's age to complete this topic Goals Goal Patient Goal Type Associated Problems Recent Progress Patient-Stated? Author Reduce calorie intake to 1800 calories per day Diet On track( 020 4:29 PM PROFESSOR OF FORESTRY) Carrol Ross MD Note: Caring for Your Overweight Child [...] Where can I go for more information? [employer] [employer] ( ) www.aap.org, HealthyChildren.org www.healthychildren.org Website and free downloadable juan ramon for smartphones: http://www.[employer]/ Exercise 3X per week (30 min per time) Exercise Not on track( 021 10:52 AM PROFESSOR OF FORESTRY) No Keeley Barry RN Use safety retraint in car Lifestyle On track( 021 10:45 AM PROFESSOR OF FORESTRY) No Keeley Barry, KATRINA Insurance [facility] Care Teams Choker Setter Relationship Specialty Start Date End Date Carrol Oh MD PCP - General Pediatrics 09/28/14
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
[2024-11-12 09:25] LABS: BEDSIDEPREGUCG Negative (Negative)
[2024-11-12 09:28] LABS: Hematocrit 42.1 % (37.0-47.0); Hemoglobin 14.0 g/dL (12.0-15.0); Immature Granulocyte Percent A 0.3 % (0-0.5); Lymphocytes Absolute Auto 1.51 K/mm3 (0.9-3.2); Mean Corpuscular HGB Conc 33.3 g/dl (32-36); Mean Corpuscular Hemoglobin 29.6 pg (26-34); Mean Corpuscular Volume 89.0 fl (80-100); Nucleated Red Blood Cells Absolute Auto 0.000 K/mm3 (0.0-0.012); Nucleated Red Blood Cells Perc 0.0 % (0.0-0.2); Platelet Count Result 397 k/mm3 (150-375); Red Blood Count 4.73 M/mm3 (4.2-5.4); White Blood Count 11.6 K/mm3 (4.5-10.0)
[2024-11-12 09:35] LABS: Add Urine Microscopic? NO; Appearance Urine Clear (Clear); Glucose Urine UA Negative (Negative); Leukocyte Esterase Ur Negative LEU/UL (Negative); Nitrate Urine Negative (Negative); Specific Grav Ur 1.019 (1.001-1.035)
[2024-11-12 09:49] LABS: Alanine Aminotransferase 22 U/L (6-35); Albumin Level 4.9 g/dL (3.5-5.1); Alkaline Phosphatase 87 U/L (38-126); Anion Gap 12 mmol/L (4-12); Aspartate Amino Transferase 40 U/L (14-36); Bilirubin,Total 0.5 mg/dL (0.2-1.3); Blood Urea Nitrogen 7 mg/dL (7-17); Calcium 9.4 mg/dL (8.4-10.2); Carbon Dioxide 26 mmol/L (22-30); Chloride 101 mmol/L (98-107); Estimated CRCL calculation 133 ml/min; Estimated Glomerular Filt Rate > 60; Glucose 99 mg/dL (65-110); Lipase 31 U/L (23-300); Potassium 4.0 mmol/L (3.4-5.0); Sodium 139 mmol/L (137-145); Total Protein 9.0 g/dL (6.3-8.2)
--- OUTSIDE RECORDS SUMMARY | 2024-11-12 09:56 | XMS_ITS | Clinical Summary ---
Author Organization [facility] Address [address] [place] [address] Care Team Providers Care Crossbow Maker Name Role Phone Carrol Oh MD Primary Care Provider [phone] Source Comments [facility],non-owned Affiliates and Associated Physician Practices is amultiple site organization consisting of ambulatory clinics and hospital sitesin [place], [place], [place] and [place]. This disclosure is being madepursuant to the Care Everywhere program and may not contain all information available regarding this patient. Last updated 17.[facility] Allergies No known active allergies Medications * [...] on file Legal Sex Female 6:55 AM FACILITY MANAGER Gender Identity Not on file Sexual Orientation Not on file Last Filed Vital Signs Vital Sign Reading Time Taken Comments Blood Pressure 143/79 05/16/2020 10:45 AM FACILITY MANAGER Pulse 83 05/16/2020 10:45 AM FACILITY MANAGER Temperature 36.5 C (97.7 F) 05/16/2020 10:45 AM FACILITY MANAGER Respiratory Rate - - Oxygen Saturation 98% 06/11/2019 10:33 AM CDT Inhaled Oxygen Concentration - - Weight 98.1 kg (216 lb 3.2 oz) 05/16/2020 10:45 AM FACILITY MANAGER Height 162.6 cm (5' 4) 05/16/2020 10:45 AM FACILITY MANAGER Body Mass Index 37.11 05/16/2020 10:45 AM FACILITY MANAGER Plan of Treatment Health Maintenance Due Date [...] day Diet On track( 020 4:29 PM FACILITY MANAGER) Carrol Ross MD Note: Caring for Your [...] Where can I go for more information? [employer] ( ) www.aap.org, HealthyChildren.org www.healthychildren.org Website and free downloadable juan ramon for smartphones: http://www.[employer]/ Exercise 3X per week (30 min per time) Exercise Not on track( 021 10:52 AM FACILITY MANAGER) No Keeley Barry RN Use safety retraint in car Lifestyle On track( 021 10:45 AM FACILITY MANAGER) No Keeley Barry, KATRINA Insurance [facility] Care Teams Crossbow Maker Relationship Specialty Start Date End Date Carrol Oh MD PCP - General Pediatrics 09/28/14
--- OUTSIDE RECORDS SUMMARY | 2024-11-12 09:56 | XMS_ITS | Encounter Summary ---
Author Organization [facility] Address [address] [place] [address] Care Team Providers Care Doughnut Dough Mixer Name Role Phone Maryjane Interiano MD Unavailable Carrol Oh MD Primary Care Provider [phone] Encounter Details Date Type Department Care Team (Late st Contact Info) Description 09/27/2015 [facility] Outpatient Visit [facility] - Pediatrics [address] [place] [phone] Carrol Oh MD [address] [place] [phone] Social History Tobacco Use Types Packs/Day Years Used Date Smoking Tobacco: Never Smokeless Tobacco: Never Alcohol Use Standard Drinks/Week Comments Not Asked 0 (1 standard drink = 0.6 oz pur e alcohol) Comments No Sex and Gender Information Value Date Recorded Sex Assigned at Not on file Legal Sex 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 Author Reduce calorie intake to 1800 calories per day Diet On track( 020 4:29 PM ACCOUNT EXECUTIVE TRAINEE) No Carrol Oh MD Note: Caring [...] Where can I go for more information? [employer] ( ) www.aap.org, HealthyChildren.org www.healthychildren.org Website and free downloadable juan ramon for smartphones: http://www.[employer]/ Use safety retraint in car Lifestyle On track( 021 10:45 AM ACCOUNT EXECUTIVE TRAINEE) Keeley Mendiola RN documented as of this encounter Visit Diagnoses Not on filedocumented in this encounter Care Teams Doughnut Dough Mixer Relationship Specialty Start Date End Date Maryjane Interiano MD PCP - Pediatrics 03/07/09 05/15/20 Carrol Oh MD PCP - General Pediatrics 09/28/14 documented as of this encounter
[2024-11-12 10:44] VITALS: BP 131/71; PULSE 86; RESP 18; O2SAT 100
== END 2024-11-12 11:47 | disposition home or self-care (01) ==
PROVIDERS: Emergency Provider Emergency Medicine
DX: R51.9 Headache, unspecified (principal); S00.93XA Contusion of unspecified part of head, initial encounter; V49.3XXA Car occupant (driver) (passenger) injured in unspecified nontraffic accident, initial encounter; F17.290 Nicotine dependence, other tobacco product, uncomplicated
CPT/HCPCS: 36415; 70450; 71260; 72125; 74177; 80053; 81003; 81025; 83690; 85025; 99284; Q9967